=== PATIENT | female | born 1940 | race Caucasian/White ===

== ENCOUNTER 2016-08-24 14:00 | Inpatient (IN) | payer MEDICAID, MEDICARE ==
[~2016-08-24] VITALS: Ht 170.2 cm; Wt 49.9 kg
[~2016-08-24 14:00] MED LIST: ALBU2.5V7 INH; ALPR0.5T96 PO; COR12.5 PO; DIGO125T79 PO; DILT180C69 PO; DONE10TA44 PO; FLUT16SP16 NS; FURO-149 PO; HYDR-1189 PO; IPRA0.2S6 INH; LEVO125T8 PO; NAPR250T PO; POTA20TA83 PO; PRO20 PO; PRO40 PO; TEMA15CA51 PO
[2016-08-24 14:03] VITALS: BP 91/55; PULSE 65; RESP 16; TEMP 97.1; O2SAT 96
[2016-08-24] MEDS ORDERED: NACL 0.9% 1,000 ML IV ONE (17:00)
[2016-08-24 17:17] LABS: BASOPHILS % (AUTO) 0.1 % (0.0-2.0); HEMATOCRIT 33.8 % (36-48); HEMOGLOBIN 11.4 g/dL (12.0-16.0); LYMPHOCYTES # (AUTO) 1.8 K/uL (1.0-5.5); LYMPHOCYTES % (AUTO) 13.1 % (20.5-51.5); MEAN CORPUSCULAR HEMOGLOBIN 28 pg (27-31); MEAN CORPUSCULAR HGB CONC 34 % (32-36); MEAN CORPUSCULAR VOLUME 84 fL (79.0-98.0); MONOCYTES # (AUTO) 0.8 K/uL (0.0-1.0); MONOCYTES % (AUTO) 5.7 % (1.7-9.3); NEUTROPHILS # (AUTO) 11.1 K/uL (1.8-7.7); NEUTROPHILS % (AUTO) 81.1 % (40.0-70.0); PLATELET COUNT (AUTO) 207 K/uL (130-430); RED BLOOD CELL COUNT(AUTO) 4.02 MIL/uL (4.2-6.2); RED CELL DISTRIBUTION WIDTH 15.2 % (9.0-15.0); WHITE BLOOD COUNT (AUTO) 13.7 K/uL (4.8-10.8)
[2016-08-24 17:21] LABS: ANION GAP 8 (5-15); CALCIUM 9.8 mg/dL (8.4-11.0); CHLORIDE 104 mmol/L (98-107); CREATININE 2.22 mg/dL (0.55-1.30); GLUCOSE 108 mg/dL (70-99); POTASSIUM 5.2 mmol/L (3.5-5.1); SODIUM SERUM 138 mmol/L (136-145); UREA NITROGEN, BLOOD 47 mg/dL (8-21)
[2016-08-24 17:26] LABS: ALANINE AMINOTRANSFERASE 27 U/L (12-78); ALBUMIN 3.8 g/dL (3.4-4.8); ASPARTATE AMINOTRANSFERASE 21 U/L (10-37); TOTAL BILIRUBIN 0.4 mg/dL (0.0-1.0); TOTAL PROTEIN, SERUM 8.2 g/dL (6.4-8.3)
[2016-08-24 19:47] VITALS: BP 109/48; PULSE 65; RESP 19; TEMP 97.2; O2SAT 95
[2016-08-24 20:30] VITALS: BP 109/48; PULSE 88
[2016-08-24] MEDS ORDERED: HYDROcodone/ACETAMIN 5-325 MG TAB (NORCO/ VICODIN) PO PRN (20:30)
[2016-08-24] MEDS: FLUTICASONE PROPIONATE 50 mCg/SPRAY 16 GM NS SCH (21:00)
[2016-08-24] MEDS: LACTOBACILLUS RHAMNOSUS GG 1 CAP CAPSULE PO SCH (22:34)
[2016-08-24] MEDS: DONEPEZIL HCL 5 MG TABLET (ARICEPT) PO SCH (22:34)
[2016-08-24] MEDS: D5/0.45 NS 1,000 ML IV SCH (22:35)
[2016-08-24] MEDS: ALPRAZolam 0.25 MG TABLET PO PRN (22:56)
[2016-08-25 00:30] VITALS: BP 149/76; PULSE 65; RESP 17; TEMP 97.9; O2SAT 97
[2016-08-25] MEDS: TEMAZEPAM 15 MG CAPSULE PO PRN ×2 (00:32→22:43)
[2016-08-25] MEDS: ALBUTEROL SULFATE 0.083% 2.5 MG/3 ML VIAL.NEB INH SCH ×4 (02:29→19:00)
[2016-08-25] MEDS: IPRATROPIUM BROM 0.5 MG/2.5 ML VIAL.NEB (ATROVENT) INH PRN ×4 (02:29→20:23)
[2016-08-25 04:00] VITALS: BP 130/73; PULSE 65; RESP 17; TEMP 98.4; O2SAT 99
[2016-08-25 07:04] LABS: ALANINE AMINOTRANSFERASE 24 U/L (12-78); ALBUMIN 3.4 g/dL (3.4-4.8); ANION GAP 8 (5-15); ASPARTATE AMINOTRANSFERASE 18 U/L (10-37); CALCIUM 9.2 mg/dL (8.4-11.0); CHLORIDE 105 mmol/L (98-107); CHOLESTEROL 122 mg/dL (<200); CREATININE 1.67 mg/dL (0.55-1.30); DIGOXIN 0.9 ng/mL (0.80-2.00); FREE T4 (FREE THYROXINE) 0.8 ng/dL (0.6-1.6); GLUCOSE 101 mg/dL (70-99); HDL CHOLESTEROL 25 mg/dL (>55); LDL CHOLESTEROL 59 mg/dL (<100); LIPASE 207 U/L (73-393); PHOSPHORUS 2.7 mg/dL (2.7-4.5); POTASSIUM 4.3 mmol/L (3.5-5.1); SODIUM SERUM 139 mmol/L (136-145); THYROID STIMULATING HORMONE 1.86 uIu/mL (0.34-4.82); TOTAL BILIRUBIN 0.4 mg/dL (0.0-1.0); TOTAL PROTEIN, SERUM 7.4 g/dL (6.4-8.3); TRIGLYCERIDES 193 mg/dL (30-150); UREA NITROGEN, BLOOD 35 mg/dL (8-21)
[2016-08-25 07:20] LABS: BASOPHILS % (AUTO) 0.1 % (0.0-2.0); HEMATOCRIT 31.1 % (36-48); HEMOGLOBIN 9.9 g/dL (12.0-16.0); LYMPHOCYTES # (AUTO) 2.8 K/uL (1.0-5.5); LYMPHOCYTES % (AUTO) 27.6 % (20.5-51.5); MEAN CORPUSCULAR HEMOGLOBIN 27 pg (27-31); MEAN CORPUSCULAR HGB CONC 32 % (32-36); MEAN CORPUSCULAR VOLUME 85 fL (79.0-98.0); MONOCYTES # (AUTO) 0.7 K/uL (0.0-1.0); MONOCYTES % (AUTO) 6.7 % (1.7-9.3); NEUTROPHILS # (AUTO) 6.5 K/uL (1.8-7.7); NEUTROPHILS % (AUTO) 65.6 % (40.0-70.0); PLATELET COUNT (AUTO) 185 K/uL (130-430); RED BLOOD CELL COUNT(AUTO) 3.68 MIL/uL (4.2-6.2); RED CELL DISTRIBUTION WIDTH 15.4 % (9.0-15.0)
[2016-08-25] MEDS: LIPASE/PROTEASE/AMYLASE 1 CAP PO SCH ×3 (08:08→17:45)
[2016-08-25] MEDS: PANTOPRAZOLE SODIUM 40 MG TAB PO SCH (08:08)
[2016-08-25] MEDS: LACTOBACILLUS RHAMNOSUS GG 1 CAP CAPSULE PO SCH ×2 (08:09→21:10)
[2016-08-25] MEDS: DIGOXIN 0.125 MG TABLET PO SCH (08:09)
[2016-08-25] MEDS: LEVOTHYROXINE SODIUM 0.125 MG TABLET PO SCH (08:09)
[2016-08-25] MEDS: FLUoxetine HCL 20 MG CAPSULE (PROzac) PO SCH (08:09)
[2016-08-25 08:18] VITALS: BP 165/88; PULSE 66; RESP 18; TEMP 97.6; O2SAT 92
[2016-08-25] MEDS: FLUTICASONE PROPIONATE 50 mCg/SPRAY 16 GM NS SCH ×2 (08:50→21:00)
[2016-08-25] MEDS ORDERED: DILTIAZEM HCL 180 MG CAP.SR.24H PO SCH (09:00)
[2016-08-25] MEDS ORDERED: DILTIAZEM HCL 120 MG CAP.SR.24H PO SCH (09:00)
[2016-08-25 11:45] LABS: ERYTHROCYTE SEDIMENTATION RATE 34 MM/HR (0-20)
[2016-08-25 12:51] VITALS: BP 143/78; PULSE 65; RESP 16; TEMP 97.9; O2SAT 98
[2016-08-25] MEDS: D5/0.45 NS 1,000 ML IV SCH (16:15)
[2016-08-25 16:25] VITALS: BP 139/72; PULSE 70; RESP 18; TEMP 98.1; O2SAT 98
[2016-08-25 18:40] VITALS: Ht 170.2 cm; Wt 49.9 kg
[2016-08-25 19:50] VITALS: BP 130/69; PULSE 71; RESP 20; TEMP 97.9; O2SAT 95
[2016-08-25] MEDS: DONEPEZIL HCL 5 MG TABLET (ARICEPT) PO SCH (21:00)
[2016-08-25] MEDS: ALPRAZolam 0.25 MG TABLET PO PRN (21:15)
[2016-08-26 00:22] VITALS: BP 137/78; PULSE 68; RESP 17; TEMP 98.7; O2SAT 98
[2016-08-26] MEDS: ALBUTEROL SULFATE 0.083% 2.5 MG/3 ML VIAL.NEB INH SCH ×3 (01:00→13:00)
[2016-08-26] MEDS: IPRATROPIUM BROM 0.5 MG/2.5 ML VIAL.NEB (ATROVENT) INH PRN ×3 (01:41→13:44)
[2016-08-26 05:07] VITALS: BP 123/66; PULSE 86; RESP 17; TEMP 98.4; O2SAT 97
[2016-08-26 07:20] VITALS: BP 120/77; PULSE 65; RESP 18; TEMP 97.2; O2SAT 95
[2016-08-26 07:25] LABS: BASOPHILS % (AUTO) 0.1 % (0.0-2.0); HEMATOCRIT 33.9 % (36-48); HEMOGLOBIN 11.5 g/dL (12.0-16.0); LYMPHOCYTES # (AUTO) 3.5 K/uL (1.0-5.5); LYMPHOCYTES % (AUTO) 26.5 % (20.5-51.5); MEAN CORPUSCULAR HEMOGLOBIN 28 pg (27-31); MEAN CORPUSCULAR HGB CONC 34 % (32-36); MEAN CORPUSCULAR VOLUME 84 fL (79.0-98.0); MONOCYTES # (AUTO) 1.1 K/uL (0.0-1.0); MONOCYTES % (AUTO) 8.2 % (1.7-9.3); NEUTROPHILS # (AUTO) 8.5 K/uL (1.8-7.7); NEUTROPHILS % (AUTO) 65.2 % (40.0-70.0); PLATELET COUNT (AUTO) 219 K/uL (130-430); RED BLOOD CELL COUNT(AUTO) 4.04 MIL/uL (4.2-6.2); RED CELL DISTRIBUTION WIDTH 14.7 % (9.0-15.0); WHITE BLOOD COUNT (AUTO) 13.1 K/uL (4.8-10.8)
[2016-08-26 07:47] LABS: ANION GAP 9 (5-15); CALCIUM 9.6 mg/dL (8.4-11.0); CHLORIDE 103 mmol/L (98-107); GLUCOSE 103 mg/dL (70-99); POTASSIUM 3.9 mmol/L (3.5-5.1); SODIUM SERUM 139 mmol/L (136-145); UREA NITROGEN, BLOOD 33 mg/dL (8-21)
[2016-08-26] MEDS ORDERED: DILTIAZEM HCL 180 MG CAP.SR.24H PO SCH (09:00)
[2016-08-26] MEDS: LEVOTHYROXINE SODIUM 0.125 MG TABLET PO SCH (09:57)
[2016-08-26] MEDS: PANTOPRAZOLE SODIUM 40 MG TAB PO SCH (09:57)
[2016-08-26] MEDS: LACTOBACILLUS RHAMNOSUS GG 1 CAP CAPSULE PO SCH (09:57)
[2016-08-26] MEDS: DIGOXIN 0.125 MG TABLET PO SCH (09:57)
[2016-08-26] MEDS: FLUoxetine HCL 20 MG CAPSULE (PROzac) PO SCH (09:57)
[2016-08-26] MEDS: LIPASE/PROTEASE/AMYLASE 1 CAP PO SCH ×2 (10:00→12:17)
[2016-08-26] MEDS: D5/0.45 NS 1,000 ML IV SCH (12:16)
[2016-08-26] MEDS: FLUTICASONE PROPIONATE 50 mCg/SPRAY 16 GM NS SCH (12:36)
[2016-08-26 12:55] VITALS: BP 128/64; PULSE 66; RESP 17; TEMP 98; O2SAT 97
[2016-08-26] MEDS ORDERED: AMYL1CAP54 PO (15:38)
[2016-08-26 16:26] VITALS: BP 110/71; PULSE 64; RESP 17; TEMP 96.6; O2SAT 96
[2016-08-26 16:31] VITALS: BP 110/71; PULSE 60; RESP 17; TEMP 96.9; O2SAT 96
== END 2016-08-26 16:45 | disposition home health service (06) | DRG 460 ==
LOC: SED 14:00 → STU 19:32
PROVIDERS: ADMIT Internal Medicine; ATTEND Internal Medicine
DX: N17.9 Acute kidney failure, unspecified (principal); E46 Unspecified protein-calorie malnutrition; R64 Cachexia; E87.5 Hyperkalemia; M32.9 Systemic lupus erythematosus, unspecified; I48.2 Chronic atrial fibrillation; F03.90 Unspecified dementia, unspecified severity, without behavioral disturbance, psychotic disturbance, mood disturbance, and anxiety; I10 Essential (primary) hypertension; F32.9 Major depressive disorder, single episode, unspecified; J44.9 Chronic obstructive pulmonary disease, unspecified; E03.9 Hypothyroidism, unspecified; E86.0 Dehydration; D64.9 Anemia, unspecified; F41.9 Anxiety disorder, unspecified; Z87.891 Personal history of nicotine dependence; Z88.6 Allergy status to analgesic agent; Z88.5 Allergy status to narcotic agent; Z88.0 Allergy status to penicillin; Z95.0 Presence of cardiac pacemaker; Z79.899 Other long term (current) drug therapy; Z79.01 Long term (current) use of anticoagulants; Z68.1 Body mass index [BMI] 19.9 or less, adult; A08.4 Viral intestinal infection, unspecified; K86.89 Other specified diseases of pancreas
CPT/HCPCS: 36415; 71010; 80048; 80053; 80061; 80162-TC; 82306; 83690-TC; 83735-TC; 84100-TC; 84439; 84443-TC; 84484; 85025; 85651-TC; 93005; 94640; 94760; 96360; 97116-GP; 99285; J7030